=== PATIENT | female | born 1945 ===

== ENCOUNTER 2017-11-09 09:29 | Emergency (ER) | payer BC, MEDICARE, OTHER ==
[2017-11-09] MEDS ORDERED: Morphine 4 MG/ML VIAL ONE (10:39)
[2017-11-09 10:42] LABS: #Basophils 0.1 thou/uL (0.0-0.2); #Eosinphils 0.1 thou/uL (0.0-0.7); #Lymphocytes 1.2 thou/uL (1.20-3.40); #Monocytes 0.4 thou/uL (0.11-0.59); #Neutrophils 6.4 thou/uL (1.40-6.50); %Basophils 0.8 % (0.0-1.0); %Eosinophils 1.5 % (0.0-10.0); %Lymphocytes 14.8 % (21.0-51.0); %Monocytes 5.1 % (0.0-10.0); %Neutrophils 77.8 % (42.0-75.0); Hemoglobin 15.1 g/dL (12.0-16.0); Mean Corpuscular Hemoglobin 29.1 pg (27.0-31.0); Mean Corpuscular Volume 90.9 fl (81.0-99.0); Mean Platelet Volume 5.9 fL (7.4-10.4); Platelet Count 253 thou/uL (130-400); RBC Distribution Width 12.3 % (11.5-14.5); Red Blood Cell (RBC) Count 5.18 mill/uL (4.20-5.40); White Blood Cell (WBC) Count 8.2 thou/uL (4.8-10.8)
[2017-11-09 11:06] LABS: ALT (SGPT) 33 U/L (8-55); AST (SGOT) 30 U/L (5-34); Albumin 3.9 g/dL (3.4-4.8); Alkaline Phosphatase 59 U/L (40-150); Anion Gap 10 mmol/L (10-20); BUN (Urea Nitrogen) 12 mg/dL (9.8-20.1); Bilirubin, Total 0.3 mg/dL (0.2-1.2); Calc. Creatinine Clearance 0 mL/min (70-130); Calcium 9.4 mg/dL (7.8-10.44); Carbon Dioxide 26 mmol/L (23-31); Chloride 105 mmol/L (98-107); Estimated GFR-MDRD 80; Globulin 2.3 g/dL (2.4-3.5); Glucose 92 mg/dL (80-115); Potassium 3.9 mmol/L (3.5-5.1); Protein, Total 6.2 g/dL (6.0-8.3); Sodium 137 mmol/L (136-145)
--- NOTE | 2017-11-09 11:07 | RAD ---
AP VIEW PELVIS: INDICATIONS: History of right lower extremity pain. The patient has also been having SI joint pain for several mo nths. 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 No acute fracture or sublux ation is demonstrated. Mild enthesopathic change is seen off the anterior-superior iliac spines. 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 IMPRESSION: No acute osseous abnormality. POS: [facility]
== END 2017-11-09 11:35 | disposition home or self-care (01) ==
LOC: ERS 09:29
DX: M25.551 Pain in right hip (principal); M54.5 Low back pain; F32.9 Major depressive disorder, single episode, unspecified
CPT/HCPCS: 36415; 72170; 80053; 85025; 85652; 86140; 96374; J2270

== ENCOUNTER 2020-02-09 12:33 | Outpatient (CLI) | payer BC ==
--- NOTE | 2020-02-09 14:42 | ULT ---
RENAL ULTRASOUND: 02/09/20 HISTORY: Urinary stone. FINDINGS: Both kidneys measure approximately 10 cm in length. No hydronephrosis. Cortical thickness and echogen icity appears normal. Small cyst right kidney measures approximately 1.0 cm. No evidence of echogenic calculus. The urinary bladder is mildly distended and unremarkable. Prevoid volume recorded at 128 mL. A postvo id volume recorded at 69 mL. IMPRESSION: 1. Small right renal cyst. 2. Otherwise unremarkable renal ultrasound. POS: [facility]
== END 2020-02-09 12:34 | disposition home or self-care (01) ==
LOC: BICULT 12:33
PROVIDERS: ATTEND Urology
DX: N20.0 Calculus of kidney (principal); N28.1 Cyst of kidney, acquired
CPT/HCPCS: 76770